=== PATIENT | male | born 1940 | race Two or more races ===

== ENCOUNTER → 2017-06-01 | Outpatient (REF) | payer MEDICARE ==
[2017-06-15 00:06] LABS: Size 5x4x3 mm (.)
== END ==
LOC: M SMT 12:55
PROVIDERS: ATTEND Nurse Practitioner Women's Health
DX: N20.0 Calculus of kidney (principal)
CPT/HCPCS: 81001; 82360; 87086; G0463

== ENCOUNTER 2018-07-24 09:37 | Day surgery (SDC) | payer MEDICARE ==
[~2018-07-24] VITALS: Ht 162.6 cm; Wt 73.0 kg
[~2018-07-24 09:37] MED LIST: ACE65ERTAB PO; ASPI1TAB PO; BIMA01SOL OU; CENT1TAB PO; CO Q10CA PO; CO Q200C10 PO; COMB0.2S OU; EZET10TA PO; FINA5TAB2 PO; FLOM0.4C39 PO; LIDOCAINE 1% MDV 20ML VIAL SQ PRN; LIDOCAINE 2% W/EPIN INJ 20ML **PRES FREE As Ordered ONE; LIDOCAINE 3.5 % 1ML OPHTH TOPICAL GEL OU ONE; LISI10TA4 PO; MEGA1CAP3 PO; META0.52 PO; NEUR600T PO; POVIDONE-IODINE 5% OPHTH PREP SOL 30ML As Ordered ONE; REDCAP9 PO; REFR0.5D8 OP; SILD1TAB8 PO; TETRACAINE 0.5% OPHTH SOLN 4ML As Ordered ONE; TOBRADEX OPHTH OINT 3.5 GM As Ordered ONE; TURM500C PO
[2018-07-24] MEDS ORDERED: fentaNYL 100 MCG/2 ML INJECTION (J3010) As Ordered ONE (13:12)
[2018-07-24] MEDS ORDERED: PROPOFOL 200 MG/20 ML VIAL As Ordered ONE (13:12)
[2018-07-24] MEDS ORDERED: MIDAZOLAM INJ 2 MG/2 ML VIAL (J2250) As Ordered ONE (13:12)
[2018-07-24] MEDS ORDERED: LR 1,000 ML IV ONE (13:30)
[2018-07-24] MEDS ORDERED: POVIDONE-IODINE 5% OPHTH PREP SOL 30ML As Ordered ONE (13:31)
[2018-07-24] MEDS ORDERED: ONDANSETRON 4MG/2ML VIAL (J2405) IV PRN (14:30)
[2018-07-24 14:55] VITALS: BP 113/64
== END 2018-07-24 14:54 | disposition home or self-care (01) ==
LOC: M SDC 09:37
PROVIDERS: ATTEND Ophthalmology
DX: H02.015 Cicatricial entropion of left lower eyelid (principal); F17.210 Nicotine dependence, cigarettes, uncomplicated; Z79.899 Other long term (current) drug therapy; Z79.82 Long term (current) use of aspirin
CPT/HCPCS: 67924; J2250; J3010

== ENCOUNTER → 2019-09-27 | Outpatient (CLI) | payer MEDICARE ==
[~2019-09-27] MED LIST changes: -ASPI1TAB PO; +ASPI81TA26 PO; -EZET10TA PO; +EZET10TA21 PO; -LIDOCAINE 1% MDV 20ML VIAL SQ PRN; -LIDOCAINE 2% W/EPIN INJ 20ML **PRES FREE As Ordered ONE; -LIDOCAINE 3.5 % 1ML OPHTH TOPICAL GEL OU ONE; -POVIDONE-IODINE 5% OPHTH PREP SOL 30ML As Ordered ONE; -TETRACAINE 0.5% OPHTH SOLN 4ML As Ordered ONE; -TOBRADEX OPHTH OINT 3.5 GM As Ordered ONE
[2019-09-27 11:54] LABS: BLOOD UREA NITROGEN 19 MG/DL (7-18); CREATININE FOR GFR 1.06 MG/DL (0.70-1.30); GLOMERULAR FILTRATION RATE > 60.0 (>42)
== END ==
LOC: M LAB 10:08
PROVIDERS: ATTEND Orthopaedic Surgery
DX: M54.16 Radiculopathy, lumbar region (principal)

== ENCOUNTER → 2020-02-05 | Outpatient (REF) | payer MEDICARE ==
[2020-02-05 17:56] LABS: APPEARANCE, URINE CLEAR (CLEAR); BACTERIA, URINE AUTO NEGATIVE (NEGATIVE); BILIRUBIN, URINE AUTO NEGATIVE (NEGATIVE); BLOOD, URINE BLOOD NEGATIVE (NEGATIVE); COLOR, URINE YELLOW (YELLOW); GLUCOSE, URINE (UA) AUTO NEGATIVE (NEGATIVE); KETONE, URINE AUTO NEGATIVE (NEGATIVE); LEUKOCYTE ESTERASE, URINE AUTO NEGATIVE (NEGATIVE); NITRITE, URINE AUTO NEGATIVE (NEGATIVE); PROTEIN, URINE AUTO NEGATIVE (NEGATIVE); RBC, URINE AUTO 0 /HPF (0-3); SPECIFIC GRAVITY URINE AUTO 1.013 (1.002-1.035); SQUAMOUS EPITHELIAL CELL UR AU 0 /HPF (0-6); UROBILINOGEN, URINE AUTO 0.2 mg/dL (0.0-2.0); WBC, URINE AUTO 1 /HPF (0-3)
== END ==
LOC: M SMT 16:38
PROVIDERS: ATTEND Nurse Practitioner Women's Health
DX: N40.0 Benign prostatic hyperplasia without lower urinary tract symptoms (principal)

== ENCOUNTER → 2021-05-15 | Outpatient (CLI) | payer MEDICARE ==
[~2021-05-15] MED LIST changes: +LISI10TA22 PO; -LISI10TA4 PO
== END ==
LOC: M LABSMTC 10:18
PROVIDERS: ATTEND Internal Medicine Cardiovascular Disease
DX: Z20.828 Contact with and (suspected) exposure to other viral communicable diseases (principal)

== ENCOUNTER → 2021-08-19 | Outpatient (CLI) | payer MEDICARE ==
[~2021-08-19] MED LIST changes: +E-Z-GAS II EFFERVESCENT PACKET (SODIUM BICARB./CITRIC ACID/SIMETHICONE) As Ordered ONE; +E-Z-HD 98% w/w 340GM SUSP BTL As Ordered ONE; +E-Z-PAQUE 96% w/w SUSP 176GM BTL As Ordered ONE
== END ==
LOC: M RAD 09:53
PROVIDERS: ATTEND Physician Assistant Medical
DX: R10.10 Upper abdominal pain, unspecified (principal); R14.2 Eructation; K22.5 Diverticulum of esophagus, acquired; K21.9 Gastro-esophageal reflux disease without esophagitis; K44.9 Diaphragmatic hernia without obstruction or gangrene; K22.89 Other specified disease of esophagus

== ENCOUNTER → 2021-09-06 | Outpatient (CLI) | payer MEDICARE ==
[~2021-09-06] MED LIST changes: +ARIP1TAB4 PO; +B6/F1CAP PO; -E-Z-GAS II EFFERVESCENT PACKET (SODIUM BICARB./CITRIC ACID/SIMETHICONE) As Ordered ONE; -E-Z-HD 98% w/w 340GM SUSP BTL As Ordered ONE; -E-Z-PAQUE 96% w/w SUSP 176GM BTL As Ordered ONE; +FURO20TA2 PO; +HYDR-3490 PO; +HYDR12.55 PO; +LEXA1TAB2 PO; +POTA-151 PO; +REPA140I2 SC; +VITA-168 PO
== END ==
LOC: M LABSMTC 10:08
PROVIDERS: ATTEND Anesthesiology
DX: Z01.812 Encounter for preprocedural laboratory examination (principal); Z20.822 Contact with and (suspected) exposure to COVID-19

== ENCOUNTER → 2021-10-13 | Outpatient (CLI) | payer MEDICARE | LOC: M LABSMTC 09:41 | PROVIDERS: ATTEND Anesthesiology | DX: Z11.52 Encounter for screening for COVID-19 (principal); Z20.822 Contact with and (suspected) exposure to COVID-19 ==

== ENCOUNTER 2021-10-18 11:21 | Day surgery (SDC) | payer MEDICARE ==
[~2021-10-18] VITALS: Ht 154.9 cm; Wt 73.4 kg
[~2021-10-18 11:21] MED LIST changes: +LIDOCAINE 2% 100MG/5ML SDV (FOR ANES.) As Ordered ONE; +NS 1,000 ML IV ONE; +propofoL 200 MG/20 ML VIAL As Ordered ONE
[2021-10-18 14:22] VITALS: BP 167/76
== END 2021-10-18 14:21 | disposition home or self-care (01) ==
LOC: M OPP 11:21
PROVIDERS: ATTEND Internal Medicine Gastroenterology
DX: K22.89 Other specified disease of esophagus (principal); B96.81 Helicobacter pylori [H. pylori] as the cause of diseases classified elsewhere; K29.70 Gastritis, unspecified, without bleeding; R10.13 Epigastric pain; R14.3 Flatulence; Z95.5 Presence of coronary angioplasty implant and graft; Z79.82 Long term (current) use of aspirin; Z79.899 Other long term (current) drug therapy; Z91.041 Radiographic dye allergy status; Z91.048 Other nonmedicinal substance allergy status; Z80.1 Family history of malignant neoplasm of trachea, bronchus and lung; Z87.891 Personal history of nicotine dependence

== ENCOUNTER → 2021-12-31 | Outpatient (REF) | payer MEDICARE ==
[~2021-12-31] MED LIST changes: -LIDOCAINE 2% 100MG/5ML SDV (FOR ANES.) As Ordered ONE; -NS 1,000 ML IV ONE; -propofoL 200 MG/20 ML VIAL As Ordered ONE
== END ==
LOC: M LAB REF 09:14
PROVIDERS: ATTEND Physician Assistant Medical
DX: R10.9 Unspecified abdominal pain (principal); B96.81 Helicobacter pylori [H. pylori] as the cause of diseases classified elsewhere

== ENCOUNTER 2022-06-24 11:17 | Inpatient (IN) | payer MEDICARE ==
[~2022-06-24] VITALS: Ht 162.6 cm; Wt 72.0 kg
[2022-06-24 12:42] LABS: BASO % 0.5 % (0.0-1.0); EOS # 0.2 10^3/uL (0.0-0.5); EOS % 2.1 % (0.0-3.0); HEMATOCRIT 41.3 % (42.0-52.0); LYMPH # 1.3 10^3/uL (1.5-5.0); LYMPH % 15.2 % (24.0-44.0); MEAN CORPUSCULAR HGB CONC 31.5 g/dl (32.0-36.5); MEAN CORPUSCULAR VOLUME 98.6 fl (80.0-96.0); MONO # 0.8 10^3/uL (0.0-0.8); MONO % 9.2 % (2.0-8.0); NEUTROPHILS # 6.3 10^3/uL (1.5-8.5); NEUTROPHILS % 72.7 % (36.0-66.0); PLATELET COUNT, AUTOMATED 221 10^3/uL (150-450); RED BLOOD COUNT 4.19 10^6/uL (4.30-6.10); WHITE BLOOD COUNT 8.6 10^3/uL (4.0-10.0)
[2022-06-24 13:04] LABS: THYROID STIMULATING HORMONE 2.828 uIU/ML (0.55-4.78)
[2022-06-24 13:11] LABS: BLOOD UREA NITROGEN 32 MG/DL (9-23); CALCIUM LEVEL 9.2 MG/DL (8.3-10.6); CARBON DIOXIDE LEVEL 25 MMOL/L (20-31); CHLORIDE LEVEL 105 MMOL/L (98-107); CREATININE FOR GFR 1.07 MG/DL (0.70-1.30); GLOMERULAR FILTRATION RATE > 60.0 (>35); GLUCOSE, FASTING 107 MG/DL (74-106); POTASSIUM SERUM 4.3 MMOL/L (3.5-5.1); SODIUM LEVEL 142 MMOL/L (136-145)
[2022-06-24] MEDS ORDERED: GABA-1171 PO (13:14)
[2022-06-24] MEDS ORDERED: ISOVUE-370 76% 100ML VIAL As Ordered ONE (13:31)
[2022-06-24] MEDS ORDERED: HOME MED LIST COMPLETE! XX SCH (16:40)
[2022-06-24] MEDS: **hydrALAZINE** 10 MG TAB PO SCH ×2 (18:00→23:53)
[2022-06-24 18:26] LABS: ABG BASE EXCESS 3.4 (-2.0-2.0); ABG HCO3 27.3 MEQ/L (22.0-26.0); ABG O2 SATURATION 92.4 % (95.0-99.0); ABG PARTIAL PRESSURE CO2 38.9 mmHg (35.0-45.0); ABG PARTIAL PRESSURE O2 61.6 mmHg (75.0-100.0); ABG STANDARD HCO3 27.4 MEQ/L (22.0-26.0); ABG TOTAL CO2 28.5 MEQ/L (23.0-31.0); ABG pH (ARTERIAL) 7.464 UNITS (7.350-7.450)
[2022-06-24] MEDS ORDERED: FUROSEMIDE 40MG/4ML VIAL (J1940) IV ONE (18:40)
[2022-06-24] MEDS ORDERED: ACETAMINOPHEN 650MG ER TAB (TYLENOL ARTHRITIS) PO PRN (18:40)
[2022-06-24] MEDS ORDERED: IPRATROPIUM 0.5MG/ALBUTEROL 2.5MG INH SOL UD 3ML (DUONEB) NEB PRN (18:50)
[2022-06-24 20:00] LABS: CK-MB VALUE MASS 1.8 NG/ML (<3.6); MB/CK RELATIVE INDEX 4.73 (< OR =4)
[2022-06-24] MEDS: IPRATROPIUM 0.5MG/ALBUTEROL 2.5MG INH SOL UD 3ML (DUONEB) NEB SCH (20:00)
[2022-06-24] MEDS ORDERED: TIMOLOL MALEATE 0.25% OPHTH SOLN 5 ML OU SCH (21:00)
[2022-06-24] MEDS: ENOXAPARIN 40MG/0.4ML SYRINGE (J1650 PER 10MG) SC SCH (22:09)
[2022-06-24] MEDS: GABAPENTIN 100 MG CAP PO SCH (22:09)
[2022-06-24] MEDS: guaiFENesin ER 600 MG TAB PO SCH (22:09)
[2022-06-24] MEDS: LATANOPROST 0.005% OPHTH SOLN 2.5 ML OU SCH (22:10)
[2022-06-24] MEDS: BRIMONIDINE 0.1% OPHTH SOLN 5 ML OU SCH (22:10)
[2022-06-24] MEDS: POLYVINYL ALCOHOL OPHTH SOLN 15ML (LIQUITEARS) OU SCH (22:10)
[2022-06-24] MEDS: DOXYCYCLINE HYCLATE 100 MG in D5W MINI-BAG PLUS 100 ML IV SCH (22:10)
[2022-06-24] MEDS: METAMUCIL (PSYLLIUM) PACKET PO SCH (22:11)
[2022-06-24] MEDS: methylPREDNISolone 40MG 1ML VIAL IV SCH (22:11)
[2022-06-24] MEDS: ISOSORBIDE DIN (ISORDIL) 10MG TAB PO SCH (22:44)
[2022-06-24 23:16] LABS: CK-MB VALUE MASS 1.9 NG/ML (<3.6); MB/CK RELATIVE INDEX 5.27 (< OR =4)
[2022-06-25 01:22] VITALS: BP 134/69
[2022-06-25 02:44] LABS: CK-MB VALUE MASS 1.3 NG/ML (<3.6)
[2022-06-25 02:45] LABS: MB/CK RELATIVE INDEX 3.51 (< OR =4)
[2022-06-25 05:40] VITALS: BP 90/68
[2022-06-25] MEDS: methylPREDNISolone 40MG 1ML VIAL IV SCH ×3 (05:50→20:42)
[2022-06-25] MEDS: **hydrALAZINE** 10 MG TAB PO SCH (06:00)
[2022-06-25] MEDS: ISOSORBIDE DIN (ISORDIL) 10MG TAB PO SCH (06:00)
[2022-06-25 06:30] VITALS: BP 106/64
[2022-06-25] MEDS: LACTOBACILLUS ACIDOPHILUS CAP (BACID) PO SCH ×3 (07:58→17:36)
[2022-06-25 08:03] LABS: HEMATOCRIT 39.1 % (42.0-52.0); HEMOGLOBIN 12.8 g/dl (13.5-17.5); MEAN CORPUSCULAR HEMOGLOBIN 31.4 pg (27.0-33.0); MEAN CORPUSCULAR HGB CONC 32.7 g/dl (32.0-36.5); MEAN CORPUSCULAR VOLUME 96.1 fl (80.0-96.0); PLATELET COUNT, AUTOMATED 200 10^3/uL (150-450); RED BLOOD COUNT 4.07 10^6/uL (4.30-6.10); WHITE BLOOD COUNT 4.3 10^3/uL (4.0-10.0)
[2022-06-25 08:18] LABS: MAGNESIUM LEVEL 1.9 MG/DL (1.8-2.4)
[2022-06-25 08:19] LABS: BLOOD UREA NITROGEN 25 MG/DL (9-23); CALCIUM LEVEL 9.1 MG/DL (8.3-10.6); CARBON DIOXIDE LEVEL 28 MMOL/L (20-31); CHLORIDE LEVEL 103 MMOL/L (98-107); CREATININE FOR GFR 0.85 MG/DL (0.70-1.30); GLOMERULAR FILTRATION RATE > 60.0 (>35); GLUCOSE, FASTING 152 MG/DL (74-106); POTASSIUM SERUM 4.9 MMOL/L (3.5-5.1); SODIUM LEVEL 137 MMOL/L (136-145)
[2022-06-25] MEDS ORDERED: TAMSULOSIN 0.4 MG CAP PO SCH (09:00)
[2022-06-25] MEDS: BRIMONIDINE 0.1% OPHTH SOLN 5 ML OU SCH ×2 (09:00→20:43)
[2022-06-25] MEDS ORDERED: POTASSIUM CHLORIDE 10MEQ SR TABLET PO SCH (09:00)
[2022-06-25] MEDS: POLYVINYL ALCOHOL OPHTH SOLN 15ML (LIQUITEARS) OU SCH ×4 (09:00→20:43)
[2022-06-25] MEDS: MULTIVITAMINS/MINERALS THERAP 1 TAB PO SCH (09:28)
[2022-06-25] MEDS: ASPIRIN 81MG ENTERIC TABLET PO SCH (09:28)
[2022-06-25] MEDS: FUROSEMIDE 20 MG TAB PO SCH (09:28)
[2022-06-25] MEDS: GABAPENTIN 100 MG CAP PO SCH ×2 (09:28→20:43)
[2022-06-25] MEDS: FINASTERIDE 5MG TAB PO SCH (09:29)
[2022-06-25] MEDS: DOXYCYCLINE HYCLATE 100 MG in D5W MINI-BAG PLUS 100 ML IV SCH ×2 (09:29→20:42)
[2022-06-25 11:12] LABS: CK-MB VALUE MASS 2.2 NG/ML (<3.6)
[2022-06-25] MEDS: guaiFENesin ER 600 MG TAB PO SCH ×2 (11:20→20:43)
[2022-06-25 11:22] LABS: MB/CK RELATIVE INDEX 7.09 (< OR =4)
[2022-06-25] MEDS: IPRATROPIUM 0.5MG/ALBUTEROL 2.5MG INH SOL UD 3ML (DUONEB) NEB SCH ×4 (11:36→19:51)
[2022-06-25 12:00] VITALS: BP 125/67
[2022-06-25 16:00] VITALS: BP 150/72
[2022-06-25 18:19] LABS: CK-MB VALUE MASS 1.4 NG/ML (<3.6)
[2022-06-25 18:20] LABS: MB/CK RELATIVE INDEX 4.24 (< OR =4)
[2022-06-25 20:21] VITALS: BP 146/83
[2022-06-25] MEDS: ENOXAPARIN 40MG/0.4ML SYRINGE (J1650 PER 10MG) SC SCH (20:42)
[2022-06-25] MEDS: LATANOPROST 0.005% OPHTH SOLN 2.5 ML OU SCH (20:43)
[2022-06-25] MEDS: METAMUCIL (PSYLLIUM) PACKET PO SCH (20:44)
[2022-06-26] VITALS (11 sets, daily range): BP systolic 130–183; BP diastolic 60–85
[2022-06-26] MEDS: methylPREDNISolone 40MG 1ML VIAL IV SCH ×2 (05:42→12:59)
[2022-06-26 07:13] LABS: HEMOGLOBIN 12.5 g/dl (13.5-17.5); MEAN CORPUSCULAR HEMOGLOBIN 31.4 pg (27.0-33.0); MEAN CORPUSCULAR HGB CONC 32.9 g/dl (32.0-36.5); MEAN CORPUSCULAR VOLUME 95.5 fl (80.0-96.0); PLATELET COUNT, AUTOMATED 203 10^3/uL (150-450); RED BLOOD COUNT 3.98 10^6/uL (4.30-6.10); WHITE BLOOD COUNT 13.1 10^3/uL (4.0-10.0)
[2022-06-26 07:36] LABS: BLOOD UREA NITROGEN 24 MG/DL (9-23); CALCIUM LEVEL 8.8 MG/DL (8.3-10.6); CARBON DIOXIDE LEVEL 23 MMOL/L (20-31); CHLORIDE LEVEL 105 MMOL/L (98-107); CREATININE FOR GFR 0.77 MG/DL (0.70-1.30); GLOMERULAR FILTRATION RATE > 60.0 (>35); GLUCOSE, FASTING 146 MG/DL (74-106); POTASSIUM SERUM 4.2 MMOL/L (3.5-5.1); SODIUM LEVEL 141 MMOL/L (136-145)
[2022-06-26] MEDS: IPRATROPIUM 0.5MG/ALBUTEROL 2.5MG INH SOL UD 3ML (DUONEB) NEB SCH ×4 (07:44→19:53)
[2022-06-26] MEDS: GABAPENTIN 100 MG CAP PO SCH ×2 (08:27→21:02)
[2022-06-26] MEDS: LACTOBACILLUS ACIDOPHILUS CAP (BACID) PO SCH ×3 (08:27→17:57)
[2022-06-26] MEDS: MULTIVITAMINS/MINERALS THERAP 1 TAB PO SCH (08:27)
[2022-06-26] MEDS: guaiFENesin ER 600 MG TAB PO SCH ×2 (08:27→21:03)
[2022-06-26] MEDS: ASPIRIN 81MG ENTERIC TABLET PO SCH (08:27)
[2022-06-26] MEDS: FINASTERIDE 5MG TAB PO SCH (08:28)
[2022-06-26] MEDS: DOXYCYCLINE HYCLATE 100 MG in D5W MINI-BAG PLUS 100 ML IV SCH ×2 (08:28→21:03)
[2022-06-26] MEDS: BRIMONIDINE 0.1% OPHTH SOLN 5 ML OU SCH ×2 (08:28→21:04)
[2022-06-26] MEDS: POLYVINYL ALCOHOL OPHTH SOLN 15ML (LIQUITEARS) OU SCH ×4 (08:28→21:04)
[2022-06-26] MEDS: FUROSEMIDE 20 MG TAB PO SCH (08:32)
[2022-06-26] MEDS: amLODIPine 5 MG TAB PO SCH ×2 (13:00→21:02)
[2022-06-26] MEDS: CARVedilol 6.25 MG TAB PO SCH ×2 (21:03→23:39)
[2022-06-26] MEDS: ENOXAPARIN 40MG/0.4ML SYRINGE (J1650 PER 10MG) SC SCH (21:03)
[2022-06-26] MEDS: LATANOPROST 0.005% OPHTH SOLN 2.5 ML OU SCH (21:04)
[2022-06-26] MEDS: METAMUCIL (PSYLLIUM) PACKET PO SCH (21:12)
[2022-06-27 04:00] VITALS: BP 135/75
[2022-06-27] MEDS: CARVedilol 6.25 MG TAB PO SCH (05:25)
[2022-06-27 05:43] LABS: HEMOGLOBIN 12.3 g/dl (13.5-17.5); MEAN CORPUSCULAR HEMOGLOBIN 31.7 pg (27.0-33.0); MEAN CORPUSCULAR HGB CONC 33.2 g/dl (32.0-36.5); MEAN CORPUSCULAR VOLUME 95.4 fl (80.0-96.0); PLATELET COUNT, AUTOMATED 212 10^3/uL (150-450); RED BLOOD COUNT 3.88 10^6/uL (4.30-6.10); WHITE BLOOD COUNT 13.4 10^3/uL (4.0-10.0)
[2022-06-27 06:06] LABS: ERYTHROCYTE SEDIMENTATION RATE 9 mm/hr (0-20)
[2022-06-27 06:14] LABS: BLOOD UREA NITROGEN 22 MG/DL (9-23); CALCIUM LEVEL 8.9 MG/DL (8.3-10.6); CARBON DIOXIDE LEVEL 28 MMOL/L (20-31); CHLORIDE LEVEL 104 MMOL/L (98-107); CREATININE FOR GFR 0.77 MG/DL (0.70-1.30); GLOMERULAR FILTRATION RATE > 60.0 (>35); GLUCOSE, FASTING 104 MG/DL (74-106); POTASSIUM SERUM 4.3 MMOL/L (3.5-5.1); SODIUM LEVEL 139 MMOL/L (136-145)
[2022-06-27 07:34] VITALS: BP_SYST 142; BP_SYST 153; BP_SYST 157; BP_DIAS 73; BP_DIAS 74; BP_DIAS 85
[2022-06-27] MEDS ORDERED: ALBU6.7H6 INH (07:54)
[2022-06-27] MEDS ORDERED: PRED10TA2 PO (07:54)
[2022-06-27] MEDS ORDERED: BACI1CAP PO (07:54)
[2022-06-27] MEDS ORDERED: DOXY-444 PO (07:54)
[2022-06-27] MEDS ORDERED: SELF1KIT MC (07:58)
[2022-06-27] MEDS ORDERED: AMLO1TAB24 PO (07:58)
[2022-06-27] MEDS ORDERED: ISOS10TA3 PO (07:59)
[2022-06-27] MEDS: IPRATROPIUM 0.5MG/ALBUTEROL 2.5MG INH SOL UD 3ML (DUONEB) NEB SCH ×4 (08:00→20:54)
[2022-06-27] MEDS: DOXYCYCLINE HYCLATE 100 MG in D5W MINI-BAG PLUS 100 ML IV SCH (08:42)
[2022-06-27] MEDS: amLODIPine 5 MG TAB PO SCH ×2 (08:43→20:25)
[2022-06-27] MEDS: predniSONE 20 MG TAB PO SCH (08:43)
[2022-06-27] MEDS: GABAPENTIN 100 MG CAP PO SCH ×2 (08:43→20:24)
[2022-06-27] MEDS: MULTIVITAMINS/MINERALS THERAP 1 TAB PO SCH (08:43)
[2022-06-27] MEDS: ASPIRIN 81MG ENTERIC TABLET PO SCH (08:43)
[2022-06-27] MEDS: LACTOBACILLUS ACIDOPHILUS CAP (BACID) PO SCH ×3 (08:43→16:19)
[2022-06-27] MEDS: FINASTERIDE 5MG TAB PO SCH (08:43)
[2022-06-27] MEDS: guaiFENesin ER 600 MG TAB PO SCH ×2 (08:44→20:25)
[2022-06-27] MEDS: FUROSEMIDE 20 MG TAB PO SCH (08:44)
[2022-06-27] MEDS: POLYVINYL ALCOHOL OPHTH SOLN 15ML (LIQUITEARS) OU SCH ×4 (08:45→20:24)
[2022-06-27] MEDS: BRIMONIDINE 0.1% OPHTH SOLN 5 ML OU SCH ×2 (08:46→20:24)
[2022-06-27] MEDS: ISOSORBIDE DIN (ISORDIL) 10MG TAB PO SCH ×2 (09:00→20:25)
[2022-06-27 19:58] VITALS: BP 152/78
[2022-06-27] MEDS: ENOXAPARIN 40MG/0.4ML SYRINGE (J1650 PER 10MG) SC SCH (20:24)
[2022-06-27] MEDS: METAMUCIL (PSYLLIUM) PACKET PO SCH (20:24)
[2022-06-27] MEDS: LATANOPROST 0.005% OPHTH SOLN 2.5 ML OU SCH (20:24)
[2022-06-27] MEDS: DOXYCYCLINE HYCLATE 100MG TABLET PO SCH (20:25)
[2022-06-28 05:26] LABS: HEMATOCRIT 37.3 % (42.0-52.0); HEMOGLOBIN 12.2 g/dl (13.5-17.5); MEAN CORPUSCULAR HEMOGLOBIN 31.5 pg (27.0-33.0); MEAN CORPUSCULAR HGB CONC 32.7 g/dl (32.0-36.5); MEAN CORPUSCULAR VOLUME 96.4 fl (80.0-96.0); PLATELET COUNT, AUTOMATED 200 10^3/uL (150-450); RED BLOOD COUNT 3.87 10^6/uL (4.30-6.10); WHITE BLOOD COUNT 9.8 10^3/uL (4.0-10.0)
[2022-06-28 06:04] LABS: BLOOD UREA NITROGEN 23 MG/DL (9-23); CALCIUM LEVEL 8.8 MG/DL (8.3-10.6); CARBON DIOXIDE LEVEL 30 MMOL/L (20-31); CHLORIDE LEVEL 105 MMOL/L (98-107); CREATININE FOR GFR 0.81 MG/DL (0.70-1.30); GLOMERULAR FILTRATION RATE > 60.0 (>35); GLUCOSE, FASTING 79 MG/DL (74-106); POTASSIUM SERUM 4.1 MMOL/L (3.5-5.1); SODIUM LEVEL 141 MMOL/L (136-145)
[2022-06-28 07:52] VITALS: BP_SYST 128; BP_SYST 144; BP_SYST 146; BP_DIAS 70; BP_DIAS 73; BP_DIAS 78
[2022-06-28] MEDS: IPRATROPIUM 0.5MG/ALBUTEROL 2.5MG INH SOL UD 3ML (DUONEB) NEB SCH ×4 (08:45→20:12)
[2022-06-28] MEDS: ISOSORBIDE DIN (ISORDIL) 10MG TAB PO SCH ×2 (09:00→21:56)
[2022-06-28] MEDS: LACTOBACILLUS ACIDOPHILUS CAP (BACID) PO SCH ×3 (09:33→18:15)
[2022-06-28] MEDS: MULTIVITAMINS/MINERALS THERAP 1 TAB PO SCH (09:33)
[2022-06-28] MEDS: guaiFENesin ER 600 MG TAB PO SCH ×2 (09:33→21:56)
[2022-06-28] MEDS: predniSONE 20 MG TAB PO SCH (09:33)
[2022-06-28] MEDS: GABAPENTIN 100 MG CAP PO SCH ×2 (09:33→21:56)
[2022-06-28] MEDS: ASPIRIN 81MG ENTERIC TABLET PO SCH (09:33)
[2022-06-28] MEDS: FUROSEMIDE 20 MG TAB PO SCH (09:33)
[2022-06-28] MEDS: DOXYCYCLINE HYCLATE 100MG TABLET PO SCH ×2 (09:33→21:56)
[2022-06-28] MEDS: FINASTERIDE 5MG TAB PO SCH (09:34)
[2022-06-28] MEDS: amLODIPine 5 MG TAB PO SCH ×2 (09:34→21:57)
[2022-06-28] MEDS: POLYVINYL ALCOHOL OPHTH SOLN 15ML (LIQUITEARS) OU SCH ×4 (09:35→21:57)
[2022-06-28] MEDS: BRIMONIDINE 0.1% OPHTH SOLN 5 ML OU SCH ×2 (09:35→21:57)
[2022-06-28] MEDS: METAMUCIL (PSYLLIUM) PACKET PO SCH (21:55)
[2022-06-28] MEDS: ENOXAPARIN 40MG/0.4ML SYRINGE (J1650 PER 10MG) SC SCH (21:56)
[2022-06-28] MEDS: LATANOPROST 0.005% OPHTH SOLN 2.5 ML OU SCH (21:57)
[2022-06-29 04:18] VITALS: BP 125/74
[2022-06-29 05:49] LABS: HEMATOCRIT 36.6 % (42.0-52.0); HEMOGLOBIN 12.1 g/dl (13.5-17.5); MEAN CORPUSCULAR HEMOGLOBIN 31.6 pg (27.0-33.0); MEAN CORPUSCULAR HGB CONC 33.1 g/dl (32.0-36.5); MEAN CORPUSCULAR VOLUME 95.6 fl (80.0-96.0); PLATELET COUNT, AUTOMATED 185 10^3/uL (150-450); RED BLOOD COUNT 3.83 10^6/uL (4.30-6.10); WHITE BLOOD COUNT 7.6 10^3/uL (4.0-10.0)
[2022-06-29 06:21] LABS: BLOOD UREA NITROGEN 23 MG/DL (9-23); CALCIUM LEVEL 8.5 MG/DL (8.3-10.6); CARBON DIOXIDE LEVEL 28 MMOL/L (20-31); CHLORIDE LEVEL 104 MMOL/L (98-107); CREATININE FOR GFR 0.82 MG/DL (0.70-1.30); GLOMERULAR FILTRATION RATE > 60.0 (>35); GLUCOSE, FASTING 85 MG/DL (74-106); POTASSIUM SERUM 3.9 MMOL/L (3.5-5.1); SODIUM LEVEL 140 MMOL/L (136-145)
[2022-06-29 07:54] VITALS: BP 159/84
[2022-06-29 08:00] VITALS: BP 159/84
[2022-06-29] MEDS: guaiFENesin ER 600 MG TAB PO SCH (08:31)
[2022-06-29] MEDS: POLYVINYL ALCOHOL OPHTH SOLN 15ML (LIQUITEARS) OU SCH ×2 (08:31→11:18)
[2022-06-29] MEDS: FINASTERIDE 5MG TAB PO SCH (08:31)
[2022-06-29] MEDS: BRIMONIDINE 0.1% OPHTH SOLN 5 ML OU SCH (08:31)
[2022-06-29 08:32] VITALS: BP 159/84
[2022-06-29] MEDS: amLODIPine 5 MG TAB PO SCH (08:32)
[2022-06-29] MEDS: predniSONE 20 MG TAB PO SCH (08:32)
[2022-06-29] MEDS: LACTOBACILLUS ACIDOPHILUS CAP (BACID) PO SCH ×2 (08:32→11:17)
[2022-06-29] MEDS: FUROSEMIDE 20 MG TAB PO SCH (08:32)
[2022-06-29] MEDS: ASPIRIN 81MG ENTERIC TABLET PO SCH (08:32)
[2022-06-29] MEDS: MULTIVITAMINS/MINERALS THERAP 1 TAB PO SCH (08:32)
[2022-06-29] MEDS: GABAPENTIN 100 MG CAP PO SCH (08:32)
[2022-06-29] MEDS: ISOSORBIDE DIN (ISORDIL) 10MG TAB PO SCH (08:32)
[2022-06-29] MEDS: DOXYCYCLINE HYCLATE 100MG TABLET PO SCH (08:32)
[2022-06-29] MEDS: IPRATROPIUM 0.5MG/ALBUTEROL 2.5MG INH SOL UD 3ML (DUONEB) NEB SCH ×2 (08:35→11:53)
== END 2022-06-29 15:39 | disposition home health service (06) | DRG 309 ==
LOC: EDBD 11:17 → M ED 11:17 → M ED INP 16:29 → M MS5PR 06-25 01:22 → M PCU 06-25 11:40
PROVIDERS: ADMIT General Practice; ATTEND General Practice
PROC: B246ZZZ Ultrasonography of Right and Left Heart (ICD-10-PCS; principal; 2022-06-25)
DX: R00.1 Bradycardia, unspecified (principal); I50.32 Chronic diastolic (congestive) heart failure; I13.0 Hypertensive heart and chronic kidney disease with heart failure and stage 1 through stage 4 chronic kidney disease, or unspecified chronic kidney disease; J96.11 Chronic respiratory failure with hypoxia; G45.1 Carotid artery syndrome (hemispheric); Z66 Do not resuscitate; I25.10 Atherosclerotic heart disease of native coronary artery without angina pectoris; N18.9 Chronic kidney disease, unspecified; J44.9 Chronic obstructive pulmonary disease, unspecified; I27.20 Pulmonary hypertension, unspecified; R55 Syncope and collapse; E78.5 Hyperlipidemia, unspecified; R00.0 Tachycardia, unspecified; N40.0 Benign prostatic hyperplasia without lower urinary tract symptoms; N52.9 Male erectile dysfunction, unspecified; K59.09 Other constipation; H40.9 Unspecified glaucoma; I16.0 Hypertensive urgency; R26.89 Other abnormalities of gait and mobility; Z95.5 Presence of coronary angioplasty implant and graft; Z86.16 Personal history of COVID-19; Z99.81 Dependence on supplemental oxygen; Z87.891 Personal history of nicotine dependence; Z90.49 Acquired absence of other specified parts of digestive tract; Z20.822 Contact with and (suspected) exposure to COVID-19; Z79.82 Long term (current) use of aspirin; Z79.899 Other long term (current) drug therapy; Z91.041 Radiographic dye allergy status; Z91.048 Other nonmedicinal substance allergy status; M19.90 Unspecified osteoarthritis, unspecified site

== ENCOUNTER → 2022-08-03 | Outpatient (CLI) | payer MEDICARE ==
[~2022-08-03] MED LIST changes: +ALBU6.7H6 INH; +ALBU8.5H INH; +AMLO1TAB24 PO; +BACI1CAP PO; +CVS1CHW13 PO; +DOXY-444 PO; +GABA-1171 PO; +GLUC1TAB58 PO; +ISOS10TA3 PO; +NEXI40CA PO; +PRED10TA2 PO; +RISATAB3 PO; +SELF1KIT MC
[2022-08-03 13:33] LABS: BASO # 0.1 10^3/uL (0.0-0.2); BASO % 0.8 % (0.0-1.0); EOS # 0.3 10^3/uL (0.0-0.5); EOS % 4.2 % (0.0-3.0); HEMATOCRIT 44.2 % (42.0-52.0); HEMOGLOBIN 14.4 g/dl (13.5-17.5); LYMPH # 1.6 10^3/uL (1.5-5.0); LYMPH % 25.3 % (24.0-44.0); MEAN CORPUSCULAR HEMOGLOBIN 31.4 pg (27.0-33.0); MEAN CORPUSCULAR HGB CONC 32.6 g/dl (32.0-36.5); MEAN CORPUSCULAR VOLUME 96.5 fl (80.0-96.0); MONO # 0.8 10^3/uL (0.0-0.8); MONO % 12.4 % (2.0-8.0); NEUTROPHILS # 3.7 10^3/uL (1.5-8.5); PLATELET COUNT, AUTOMATED 237 10^3/uL (150-450); RED BLOOD COUNT 4.58 10^6/uL (4.30-6.10); WHITE BLOOD COUNT 6.5 10^3/uL (4.0-10.0)
[2022-08-03 13:43] LABS: ERYTHROCYTE SEDIMENTATION RATE 45 mm/hr (0-20)
[2022-08-03 13:55] LABS: CPK CREATINE PHOSPHOKINASE 40 U/L (46-171); RHEUMATOID FACTOR QUANT < 3.5 IU/ML (<14)
[2022-08-04 15:07] LABS: RNP ANTIBODY 0.2 AI (0.0-0.9); SMITHS ANTIBODY < 0.2 AI (0.0-0.9)
[2022-08-16 18:16] LABS: ALDOLASE 9.8 U/L (3.3-10.3); ANA (HEP2) Negative (.); ANTI CENTROMERE ANTIBODY <0.2 AI (0.0-0.9); ANTI DS-DNA AB Negative (Negative); ANTI JO-1 ANTIBODIES <20 Units (<20); ANTI SCLERODERMA ANTIBODIES 0.2 AI (0.0-0.9); ANTI SMITH(Sm) AB <20 Units (<20); CYCLIC CITRULLINATED PEPTIDE < 1 units (0-19); Mi-2 ANTIBODIES Negative (Negative); SSA SJOGRENS A <0.2 AI (0.0-0.9); SSB SJOGRENS B <0.2 AI (0.0-0.9)
== END ==
LOC: M LAB 12:14
PROVIDERS: ATTEND Internal Medicine Critical Care Medicine
DX: J84.10 Pulmonary fibrosis, unspecified (principal)

== ENCOUNTER 2022-08-18 18:30 | Inpatient (IN) | payer MEDICARE ==
[~2022-08-18] VITALS: Ht 162.6 cm; Wt 67.1 kg
[2022-08-18 19:37] VITALS: O2SAT 91
[2022-08-18 20:03] LABS: BASO # 0.1 10^3/uL (0.0-0.2); BASO % 0.9 % (0.0-1.0); EOS # 0.3 10^3/uL (0.0-0.5); EOS % 3.4 % (0.0-3.0); HEMATOCRIT 41.2 % (42.0-52.0); HEMOGLOBIN 13.3 g/dl (13.5-17.5); LYMPH # 1.4 10^3/uL (1.5-5.0); LYMPH % 17.2 % (24.0-44.0); MEAN CORPUSCULAR HEMOGLOBIN 30.5 pg (27.0-33.0); MEAN CORPUSCULAR HGB CONC 32.3 g/dl (32.0-36.5); MEAN CORPUSCULAR VOLUME 94.5 fl (80.0-96.0); MONO # 0.8 10^3/uL (0.0-0.8); MONO % 9.7 % (2.0-8.0); NEUTROPHILS # 5.5 10^3/uL (1.5-8.5); NEUTROPHILS % 68.4 % (36.0-66.0); PLATELET COUNT, AUTOMATED 232 10^3/uL (150-450); RED BLOOD COUNT 4.36 10^6/uL (4.30-6.10)
[2022-08-18 20:08] LABS: APPEARANCE, URINE MANUAL CLEAR (CLEAR); COLOR, URINE MANUAL YELLOW (YELLOW)
[2022-08-18 20:09] LABS: BILIRUBIN, URINE MANUAL NEGATIVE (NEGATIVE); BLOOD URINE MANUAL TRACE (NEGATIVE); GLUCOSE, URINE (UA) MANUAL NEGATIVE (NEGATIVE); KETONE, URINE MANUAL NEGATIVE (NEGATIVE); LEUKOCYTE ESTERASE, URINE MAN NEGATIVE (NEGATIVE); NITRITE, URINE MANUAL NEGATIVE (NEGATIVE); PH,URINE MAN 6.5 UNITS (5.0 - 7.0); PROTEIN, URINE MANUAL NEGATIVE (NEGATIVE); SPECIFIC GRAVITY,URINE MANUAL 1.015 (1.002-1.035); UROBILINOGEN, URINE MANUAL NORMAL (NORMAL)
[2022-08-18 20:17] LABS: BACTERIA, URINE NONE SEEN; HYALINE CAST, URINE NONE SEEN /lpf (0-1); SQUAMOUS EPITHELIAL CELL URINE NONE SEEN /hpf (SMALL AMT); WBC, URINE 0-1 /hpf (0-3)
[2022-08-18 20:35] LABS: ALBUMIN 3.3 G/DL (3.2-5.2); ALKALINE PHOSPHATASE 105 U/L (46-116); ALT/SGPT 23 U/L (7.0-40); AST/SGOT 41 U/L (<34); BILIRUBIN,DIRECT 0.5 MG/DL (<0.4); BILIRUBIN,TOTAL 1.4 MG/DL (0.3-1.2); BLOOD UREA NITROGEN 19 MG/DL (9-23); CARBON DIOXIDE LEVEL 33 MMOL/L (20-31); CHLORIDE LEVEL 99 MMOL/L (98-107); CREATININE FOR GFR 0.96 MG/DL (0.70-1.30); GLOMERULAR FILTRATION RATE > 60.0 (>35); GLUCOSE, FASTING 120 MG/DL (74-106); POTASSIUM SERUM 3.6 MMOL/L (3.5-5.1); SODIUM LEVEL 139 MMOL/L (136-145); TOTAL PROTEIN 6.8 G/DL (5.7-8.2)
[2022-08-18] MEDS ORDERED: methylPREDNISolone 125MG 2ML VIAL IV ONE (22:40)
[2022-08-18] MEDS ORDERED: IPRATROPIUM 0.5MG/ALBUTEROL 2.5MG INH SOL UD 3ML (DUONEB) NEB ONE (22:40)
[2022-08-18] MEDS ORDERED: ALBUTEROL SULFATE 2.5MG/0.5ML INH NEB SOLN NEB PRN (23:00)
[2022-08-18] MEDS ORDERED: FUROSEMIDE 20MG/2ML VIAL IV ONE (23:10)
[2022-08-18] MEDS ORDERED: FUROSEMIDE 20MG/2ML VIAL As Ordered ONE (23:15)
[2022-08-18] MEDS ORDERED: CARVedilol 3.125 MG TAB PO ONE (23:30)
[2022-08-19] VITALS (19 sets, daily range): BP systolic 91–131; BP diastolic 50–69
[2022-08-19] MEDS ORDERED: HOME MED LIST COMPLETE! XX SCH
[2022-08-19 04:42] LABS: HEMATOCRIT 38.1 % (42.0-52.0); HEMOGLOBIN 12.7 g/dl (13.5-17.5); MEAN CORPUSCULAR HEMOGLOBIN 31.1 pg (27.0-33.0); MEAN CORPUSCULAR HGB CONC 33.3 g/dl (32.0-36.5); MEAN CORPUSCULAR VOLUME 93.2 fl (80.0-96.0); PLATELET COUNT, AUTOMATED 198 10^3/uL (150-450); RED BLOOD COUNT 4.09 10^6/uL (4.30-6.10); WHITE BLOOD COUNT 5.6 10^3/uL (4.0-10.0)
[2022-08-19 05:05] LABS: BLOOD UREA NITROGEN 18 MG/DL (9-23); CALCIUM LEVEL 8.7 MG/DL (8.3-10.6); CARBON DIOXIDE LEVEL 31 MMOL/L (20-31); CHLORIDE LEVEL 100 MMOL/L (98-107); CREATININE FOR GFR 0.93 MG/DL (0.70-1.30); GLOMERULAR FILTRATION RATE > 60.0 (>35); GLUCOSE, FASTING 149 MG/DL (74-106); MAGNESIUM LEVEL 1.8 MG/DL (1.8-2.4); POTASSIUM SERUM 3.9 MMOL/L (3.5-5.1); SODIUM LEVEL 139 MMOL/L (136-145)
[2022-08-19] MEDS: PIPERACILLIN/TAZOBACTAM SOD 3.375 GM in D5W MINI-BAG PLUS 50 ML IV SCH ×6 (05:49→23:41)
[2022-08-19] MEDS: methylPREDNISolone 40MG 1ML VIAL IV SCH ×4 (05:49→23:41)
[2022-08-19] MEDS: INSULIN LISPRO (NovoLOG) PER UNIT SC SCH ×4 (07:30→21:00)
[2022-08-19] MEDS: IPRATROPIUM 0.5MG/ALBUTEROL 2.5MG INH SOL UD 3ML (DUONEB) NEB SCH ×4 (07:46→20:17)
[2022-08-19] MEDS ORDERED: DEXTROSE 50% 50ML SYRINGE IV PRN (08:15)
[2022-08-19] MEDS ORDERED: GLUCAGON INJ 1MG VIAL SC PRN (08:15)
[2022-08-19] MEDS ORDERED: GLUCOSE 4GM CHEW TABLET PO PRN (08:15)
[2022-08-19] MEDS: FUROSEMIDE 40 MG TAB PO SCH (08:50)
[2022-08-19] MEDS: HEPARIN SOD (PORCINE) 5000UNITS/ML 1ML VIAL/SYRINGE SC SCH ×2 (08:51→21:19)
[2022-08-19] MEDS: PANTOPRAZOLE 40MG VIAL IV SCH ×2 (08:52→21:56)
[2022-08-19] MEDS: ESCITALOPRAM OXALATE 10 MG TAB (LEXAPRO) PO SCH (09:00)
[2022-08-19] MEDS: FINASTERIDE 5MG TAB PO SCH (09:00)
[2022-08-19] MEDS: GABAPENTIN 100 MG CAP PO SCH ×2 (09:00→21:22)
[2022-08-19] MEDS: LIDOCAINE 5% (LIDODERM) PATCH TD SCH (14:00)
[2022-08-19] MEDS: BRIMONIDINE 0.15% OPHTH SOLN 5 ML OU SCH (21:21)
[2022-08-19] MEDS: TIMOLOL MALEATE 0.5% OPHTH SOLN 5 ML OU SCH (21:21)
[2022-08-19] MEDS ORDERED: MAG SULF 1GM/100ML (MAG RUN) 1 GM in IV 1 EA IV ONE (22:00)
[2022-08-20] VITALS (12 sets, daily range): BP systolic 98–139; BP diastolic 51–68
[2022-08-20] MEDS: PIPERACILLIN/TAZOBACTAM SOD 3.375 GM in D5W MINI-BAG PLUS 50 ML IV SCH ×3 (05:23→18:08)
[2022-08-20] MEDS: methylPREDNISolone 40MG 1ML VIAL IV SCH ×3 (05:23→18:08)
[2022-08-20] MEDS: IPRATROPIUM 0.5MG/ALBUTEROL 2.5MG INH SOL UD 3ML (DUONEB) NEB SCH ×4 (07:39→20:21)
[2022-08-20] MEDS: BRIMONIDINE 0.15% OPHTH SOLN 5 ML OU SCH ×2 (08:09→20:46)
[2022-08-20] MEDS: LIDOCAINE 5% (LIDODERM) PATCH TD SCH (08:09)
[2022-08-20] MEDS: TIMOLOL MALEATE 0.5% OPHTH SOLN 5 ML OU SCH ×2 (08:10→20:46)
[2022-08-20] MEDS: INSULIN LISPRO (NovoLOG) PER UNIT SC SCH ×4 (08:10→20:50)
[2022-08-20] MEDS: GABAPENTIN 100 MG CAP PO SCH ×2 (08:11→20:42)
[2022-08-20] MEDS: ESCITALOPRAM OXALATE 10 MG TAB (LEXAPRO) PO SCH (08:11)
[2022-08-20] MEDS: PANTOPRAZOLE 40MG VIAL IV SCH (08:11)
[2022-08-20] MEDS: HEPARIN SOD (PORCINE) 5000UNITS/ML 1ML VIAL/SYRINGE SC SCH ×2 (08:12→20:46)
[2022-08-20] MEDS: FINASTERIDE 5MG TAB PO SCH (08:12)
[2022-08-20] MEDS: FUROSEMIDE 40 MG TAB PO SCH (08:12)
[2022-08-20] MEDS ORDERED: ALBUTEROL 90 MCG/ACT 8GM HFA INHALER INH PRN (12:15)
[2022-08-20] MEDS: amLODIPine 5 MG TAB PO SCH ×3 (14:26→20:43)
[2022-08-20] MEDS ORDERED: SODIUM CHLORIDE NASAL 0.65% SPRAY BTL (OCEAN) PRN (16:45)
[2022-08-20] MEDS: ISOSORBIDE DIN (ISORDIL) 10MG TAB PO SCH (20:42)
[2022-08-20] MEDS: ASPIRIN 81MG ENTERIC TABLET PO SCH (20:42)
[2022-08-20] MEDS: ACETAMINOPHEN 650MG ER TAB (TYLENOL ARTHRITIS) PO SCH (20:43)
[2022-08-20] MEDS ORDERED: ASPIRIN 81MG ENTERIC TABLET PO SCH (21:00)
[2022-08-21] VITALS (42 sets, daily range): BP systolic 82–129; BP diastolic 50–73
[2022-08-21] MEDS: methylPREDNISolone 40MG 1ML VIAL IV SCH ×4 (00:21→17:04)
[2022-08-21] MEDS: PIPERACILLIN/TAZOBACTAM SOD 3.375 GM in D5W MINI-BAG PLUS 50 ML IV SCH ×4 (00:21→17:04)
[2022-08-21 04:33] LABS: HEMATOCRIT 34.4 % (42.0-52.0); HEMOGLOBIN 11.2 g/dl (13.5-17.5); MEAN CORPUSCULAR HGB CONC 32.6 g/dl (32.0-36.5); MEAN CORPUSCULAR VOLUME 95.3 fl (80.0-96.0); PLATELET COUNT, AUTOMATED 214 10^3/uL (150-450); RED BLOOD COUNT 3.61 10^6/uL (4.30-6.10); WHITE BLOOD COUNT 10.8 10^3/uL (4.0-10.0)
[2022-08-21 04:55] LABS: BLOOD UREA NITROGEN 24 MG/DL (9-23); CALCIUM LEVEL 8.7 MG/DL (8.3-10.6); CARBON DIOXIDE LEVEL 34 MMOL/L (20-31); CHLORIDE LEVEL 105 MMOL/L (98-107); CREATININE FOR GFR 1.04 MG/DL (0.70-1.30); GLOMERULAR FILTRATION RATE > 60.0 (>35); GLUCOSE, FASTING 139 MG/DL (74-106); POTASSIUM SERUM 3.8 MMOL/L (3.5-5.1); SODIUM LEVEL 146 MMOL/L (136-145)
[2022-08-21] MEDS: ESCITALOPRAM OXALATE 10 MG TAB (LEXAPRO) PO SCH (08:23)
[2022-08-21] MEDS: FINASTERIDE 5MG TAB PO SCH (08:23)
[2022-08-21] MEDS: GABAPENTIN 100 MG CAP PO SCH ×2 (08:24→21:09)
[2022-08-21] MEDS: LACTOBACILLUS ACIDOPHILUS CAP (BACID) PO SCH ×4 (08:24→21:08)
[2022-08-21] MEDS: ISOSORBIDE DIN (ISORDIL) 10MG TAB PO SCH ×2 (08:24→21:09)
[2022-08-21] MEDS: HEPARIN SOD (PORCINE) 5000UNITS/ML 1ML VIAL/SYRINGE SC SCH (08:25)
[2022-08-21] MEDS: INSULIN LISPRO (NovoLOG) PER UNIT SC SCH ×4 (08:25→21:00)
[2022-08-21] MEDS: amLODIPine 5 MG TAB PO SCH ×2 (08:25→21:09)
[2022-08-21] MEDS: LIDOCAINE 5% (LIDODERM) PATCH TD SCH (08:26)
[2022-08-21] MEDS: BRIMONIDINE 0.15% OPHTH SOLN 5 ML OU SCH ×2 (08:26→21:09)
[2022-08-21] MEDS: TIMOLOL MALEATE 0.5% OPHTH SOLN 5 ML OU SCH ×2 (08:26→21:10)
[2022-08-21] MEDS ORDERED: D5W 1,500 ML IV SCH (08:30)
[2022-08-21 08:36] LABS: MAGNESIUM LEVEL 2.1 MG/DL (1.8-2.4)
[2022-08-21] MEDS: IPRATROPIUM 0.5MG/ALBUTEROL 2.5MG INH SOL UD 3ML (DUONEB) NEB SCH ×4 (08:55→19:48)
[2022-08-21] MEDS ORDERED: TAMSULOSIN 0.4 MG CAP PO SCH (09:00)
[2022-08-21] MEDS ORDERED: FUROSEMIDE 40MG/4ML VIAL IV SCH (09:00)
[2022-08-21] MEDS ORDERED: PANTOPRAZOLE 40MG TAB (PROTONIX) PO SCH (09:00)
[2022-08-21] MEDS ORDERED: AMIODARONE HCL 150 MG in IV 1 EA IV STA (15:09)
[2022-08-21] MEDS ORDERED: DIGOXIN INJ 0.5 MG/2 ML AMP IV STA (15:18)
[2022-08-21] MEDS: METOPROLOL 5 MG/5 ML VIAL IV SCH ×13 (15:32→17:53)
[2022-08-21] MEDS: AMIODARONE 200 MG TAB (PACERONE) PO SCH ×2 (16:57→21:09)
[2022-08-21] MEDS ORDERED: METOPROLOL TART 25 MG TABLET PO SCH (18:00)
[2022-08-21] MEDS ORDERED: APIXABAN 2.5 MG TAB (ELIQUIS) PO SCH (21:00)
[2022-08-21] MEDS: ASPIRIN 81MG ENTERIC TABLET PO SCH (21:08)
[2022-08-21] MEDS: ACETAMINOPHEN 650MG ER TAB (TYLENOL ARTHRITIS) PO SCH (21:08)
[2022-08-22] MEDS ORDERED: ENOXAPARIN 40MG/0.4ML SYRINGE (J1650 PER 10MG) SC SCH (09:00)
== END 2022-08-21 23:04 | disposition expired | DRG 196 ==
LOC: M ED 18:30 → M ED INP 22:57 → ENRESERV 08-19 00:46 → M ICU 08-19 02:37
PROVIDERS: ADMIT Internal Medicine; ATTEND Student in an Organized Health Care Education/Training Program
PROC: B246ZZZ Ultrasonography of Right and Left Heart (ICD-10-PCS; principal; 2022-08-20)
DX: J84.9 Interstitial pulmonary disease, unspecified (principal); J96.21 Acute and chronic respiratory failure with hypoxia; I21.9 Acute myocardial infarction, unspecified; I50.33 Acute on chronic diastolic (congestive) heart failure; I47.20 Ventricular tachycardia, unspecified; E87.0 Hyperosmolality and hypernatremia; I95.1 Orthostatic hypotension; Z99.81 Dependence on supplemental oxygen; F32.A Depression, unspecified; K21.9 Gastro-esophageal reflux disease without esophagitis; Z66 Do not resuscitate; E78.00 Pure hypercholesterolemia, unspecified; N40.0 Benign prostatic hyperplasia without lower urinary tract symptoms; R73.9 Hyperglycemia, unspecified; H26.9 Unspecified cataract; I25.10 Atherosclerotic heart disease of native coronary artery without angina pectoris; R19.7 Diarrhea, unspecified; I48.91 Unspecified atrial fibrillation; I25.2 Old myocardial infarction; M51.36 Other intervertebral disc degeneration, lumbar region; I11.0 Hypertensive heart disease with heart failure; Z90.49 Acquired absence of other specified parts of digestive tract; Z20.822 Contact with and (suspected) exposure to COVID-19; Z79.82 Long term (current) use of aspirin; Z79.899 Other long term (current) drug therapy; Z91.041 Radiographic dye allergy status; Z91.048 Other nonmedicinal substance allergy status; Z87.891 Personal history of nicotine dependence